=== PATIENT | female | born 1940 | race Caucasian/White ===

== ENCOUNTER 2021-08-09 09:05 | Emergency (ER) | payer MEDICARE, SELFPAY ==
[2021-08-09] VITALS (10 sets, daily range): BP systolic 134–150; BP diastolic 54–66; PULSE 65–89; RESP 16–18; TEMP 36.4; O2SAT 95–99
--- NOTE | ~2021-08-09 | XR_ITS ---
EXAMINATION: XR chest 2V DATE: 08/09/2021 09:56 INDICATION: Cough TECHNIQUE: Frontal and lateral views of the chest are obtained COMPARISON: 06/04/2015 FINDINGS: The lungs are free of acute opacities. There is no pleural effusion or pneumothorax. The ca rdiomediastinal silhouette is normal. There is mild thoracic spondylosis. IMPRESSION: 1. No acute cardiopulmonary abnormality. Reviewed, dictated and finalized at location B.
--- NOTE | 2021-08-09 09:30 | PC.NURSE ---
EDP at bedside to assess pt.
--- NOTE | 2021-08-09 09:40 | ED.URI ---
HPI - URI/Sore Throat General Chief Complaint: Upper Respiratory Infection Stated Complaint: URI Time Seen by Provider: 08/09/21 09:11 Source: patient Mode of arrival: ambulatory Limitations: no limitations History of Present Illness HPI Narrative: 81 y/o female presents to the ER this morning for complaints of sinus congestion and drainage for the past 8 days. She feels a lot of pressure through her forehead. She has had a cough for the past 3 days. She spiked a fever at home this morning of 104. It came down after she took some tylenol. She denies feeling short of breath and does not have any congestion feeling in her chest. She is also reporting UTI symptoms. She has dysuria and urinary frequency for the past 5 days. She has some left flank pain. This is chronic but says it is a little worse right now and she some discomfort in the bladder area. No other abdominal pain. No n/v/d. She has a history of UTIs and says that she gets them very easily. Related Data Allergies Allergy/AdvReac Type Severity Reaction Status Date / Time Penicillins Allergy Unknown THROAT Verified 08/09/21 10:46 AHMET Review of Systems Constitutional: Constitutional: Denies chills, Denies fatigue and Reports fever(s) Eyes: Eyes: Denies change in vision ENT: Reports as per HPI, Denies dizziness, Reports nasal congestion and Denies sore throat Cardiovascular: Cardiovascular: Denies chest pain Respiratory: Respiratory: Denies chest congestion, Reports cough, Denies dyspnea and Denies wheezing Gastrointestinal: Gastrointestinal: Denies abdominal pain, Denies constipation, Denies diarrhea, Denies nausea and Denies vomiting Genitourinary: Genitourinary: Denies hematuria, Reports nocturia, Reports dysuria and Reports flank pain Musculoskeletal: Musculoskeletal: Denies myalgias Neurologic: Reports as per HPI, Denies dizziness, Reports headache(s) and Denies weakness Psychiatric: Psychiatric: Denies anxiety and Denies depression Endocrine: Endocrine: Denies fatigue Hematologic/Lymphatic: Hematologic/Lymphatic: Denies easy bleeding and Denies easy bruising Exam Const: General: healthy appearing, no acute distress and alert Orientation/consciousness: patient oriented x3 HENMT: Ears: TM's normal bilaterally (left TM obstructed by wax) General nose exam: Nasal discharge present clear Face and sinus: sinus tenderness Mouth: Yes Normal oral and palatal mucosa present Throat: posterior oropharynx normal Eyes: Conjunctivae: conjunctivae normal Neck: Neck: normal visual inspection Chest: Chest palpation & inspection: normal inspection of the chest Resp: Effort & Inspection: normal respiratory effort Auscultation: clear to auscultation bilaterally Cardio: Rate: regular rate Rhythm: regular rhythm GI: GI Palp: Yes Soft to palpation, No Tenderness to palpation present (GI) and No Guarding due to palpation present (GI) Auscultation: normal bowel sounds : General: Yes CVA tenderness on the left (mild) Skin: General skin exam: normal color Rashes: no rashes Neuro: General: patient oriented x3, moves all extremities, no focal motor deficits and CN's II-XI intact bilaterally Speech: normal speech Extrem: General: normal to inspection and no edema Psych: Mental Status: mental status grossly normal Affect: normal affect Attitude: cooperative Course Vital Signs Vital signs: Vital Signs Temperature 36.4 C 08/09/21 09:10 Pulse Rate 89 08/09/21 09:10 Respiratory Rate 16 08/09/21 09:10 Blood Pressure 150/65 H 08/09/21 09:10 Pulse Oximetry 98 08/09/21 09:10 Temperature 36.4 C 08/09/21 09:10 Pulse Rate 89 08/09/21 09:10 Respiratory Rate 16 08/09/21 09:10 Blood Pressure 134/58 L 08/09/21 11:01 Pulse Oximetry 97 08/09/21 11:01 MDM - URI/Sore Throat Differential Diagnosis Differential diagnosis: Likely upper respiratory infection, sinusitis and other (UTI, pyelonephritis, pneumonia ) Medical Records Atte
[2021-08-09 10:13] LABS: Basophils Percent Auto 0.7 % (0.2-1.2); Eosinophils Absolute Auto 0.1 K/mm3 (0-0.3); Eosinophils Percent Auto 1.1 % (0-4.4); Hematocrit 36.2 % (37.0-47.0); Hemoglobin 11.9 g/dL (12.0-15.0); Immature Granulocyte Absolute 0.02 K/mm3 (0.00-0.031); Immature Granulocyte Percent A 0.4 % (0-0.5); Lymphocytes Percent Auto 22.2 % (18.3-44.2); Mean Corpuscular HGB Conc 32.9 g/dl (32-36); Mean Corpuscular Hemoglobin 29.2 pg (26-34); Mean Corpuscular Volume 88.9 fl (80-100); Mean Platelet Volume 8.6 fl (7.4-10.4); Monocytes Absolute Auto 0.6 K/mm3 (0.1-0.6); Monocytes Percent Auto 11.7 % (2.6-8.5); Neutrophils Absolute Auto 3.5 K/mm3 (1.3-6.7); Neutrophils Percent Auto 63.9 % (45.5-73.1); Platelet Count Result 216 k/mm3 (150-375); Red Blood Count 4.07 M/mm3 (4.2-5.4); Red Cell Distribution Width 13.8 % (11.5-14.5); White Blood Count 5.4 K/mm3 (4.5-10.0)
[2021-08-09 10:22] LABS: Alanine Aminotransferase 14 U/L (4-35); Albumin Level 4.1 g/dL (3.5-5.1); Alkaline Phosphatase 74 U/L (38-126); Anion Gap 4 mmol/L (8-16); Aspartate Amino Transferase 27 U/L (14-36); Bilirubin,Total 0.3 mg/dL (0.2-1.3); Blood Urea Nitrogen 11 mg/dL (7-17); Calcium 8.4 mg/dL (8.4-10.2); Carbon Dioxide 27 mmol/L (22-30); Chloride 103 mmol/L (98-107); Estimated CRCL calculation 32 ml/min; Estimated Glomerular Filt Rate 60; Glucose 140 mg/dL (65-110); Potassium 3.8 mmol/L (3.4-5.0); Sodium 134 mmol/L (137-145)
[2021-08-09] MEDS: ACETAMINOPHEN 325 MG TABLET 650 MG PO (10:26)
[2021-08-09 10:49] LABS: Influenza A QL RT-PCR Negative (Negative); Influenza B QL RT-PCR Negative (Negative); SARS-CoV-2 RNA PCR Negative
--- NOTE | 2021-08-09 11:08 | PC.NURSE ---
Patient ambulated to for urine sample. Steady gait.
[2021-08-09 11:29] LABS: Add Urine Microscopic? YES; Appearance Urine Cloudy (Clear); Bacteria Urine Trace /hpf; Bilirubin Urine Negative (Negative); Blood Urine 2+ (Negative); Color Urine Yellow (Yellow); Glucose Urine UA Negative (Negative); Ketones Urine Negative (Negative); Leukocyte Esterase Ur 3+ LEU/UL (Negative); Mucus Urine Rare /lpf; Nitrate Urine Positive (Negative); Protein Urine Negative (Negative); RBC Urine 0-2 /hpf (0-2); Specific Grav Ur 1.005 (1.001-1.035); Squamous Epithelial Cell Urine Rare /hpf (Few); Urobilinogen Urine Negative mg/dL (<2.0); WBC Urine >75 /hpf
== END 2021-08-09 12:06 | disposition home or self-care (01) ==
PROVIDERS: Emergency Provider Nurse Practitioner Family; PCP Family Medicine
DX: J06.9 Acute upper respiratory infection, unspecified (principal); N39.0 Urinary tract infection, site not specified; Z20.822 Contact with and (suspected) exposure to COVID-19
CPT/HCPCS: 36415; 71046; 80053; 81001; 85025; 87077; 87086; 87186; 87502; 99283; A9270; C9803; U0003; U0005

== ENCOUNTER 2022-02-02 12:53 | Emergency (ER) | payer MEDICARE, SELFPAY ==
[2022-02-02 13:07] VITALS: BP 155/65; PULSE 84; RESP 16; TEMP 36.8; O2SAT 100
--- NOTE | 2022-02-02 13:14 | ED.FEMALEGU ---
HPI - Female Genitourinary General Chief complaint: Urogenital-Female Stated complaint: flank pain , blood in urine Time Seen by Provider: 02/02/22 12:59 History of Present Illness HPI Narrative: 82-year-old female presents to the emergency room today for complaints of dysuria, hematuria and bilateral flank pain. She has had symptoms of a urinary tract infection for about a week. She has been trying to increase her water intake but says it is still not going away. She has pain and pressure in the bladder area. She reports burning with urination. She noticed some blood in her urine this morning. She denies having any fever or chills. No nausea, vomiting or diarrhea. She has a history of urinary tract infections but denies having a recent infection. Related Data Home Medications Medication Instructions Recorded Confirmed levothyroxine 100 mcg tablet mcg 02/02/22 02/02/22 Allergies Allergy/AdvReac Type Severity Reaction Status Date / Time Penicillins Allergy Unknown THROAT Verified 02/02/22 12:59 SWELLS codeine Allergy Swelling Verified 02/02/22 13:06 of Lip/Tongue/Throat Review of Systems Review of Systems: CONSTITUTIONAL: Denies fever, chills, or sweats. EYES: Denies visual changes, redness, or discharge. ENT: Denies rhinorrhea, congestion, sore throat, or otalgia. CARDIOVASCULAR: Denies chest pain, palpitations, or edema. RESPIRATORY: Denies cough or dyspnea. GASTROINTESTINAL: Denies abdominal pain, nausea, vomiting, or diarrhea. GENITOURINARY: as per HPI. SKIN: Denies rash or itching. MUSCULOSKELETAL: Denies back pain, joint pain, or myalgia. NEUROLOGIC: Denies headache, numbness, dizziness, or weakness. PSYCHIATRIC: Denies anxiety or depression. Exam Narrative: GENERAL: Well-appearing, well-nourished, and in no acute distress. HEAD: Normocephalic, atraumatic. EYES: PERRLA and EOMI. NECK: Supple. No adenopathy or masses. No carotid bruits or JVD CHEST: Clear to auscultation. No respiratory distress. No wheezes rales or rhonchi HEART: Regular rate and rhythm. No murmur heard. Normal peripheral pulses. ABDOMEN: Soft, suprapubic tenderness, bilater CVAT, nondistended, normal active bowel sounds. EXTREMITIES: Normal range of motion. No edema. SKIN: Warm, dry, no rash. NEURO: No focal deficits. Alert and oriented x3. PSYCH: Normal mood and affect. Course Vital Signs Vital signs: Vital Signs Temperature 36.8 C 02/02/22 13:07 Pulse Rate 84 02/02/22 13:07 Respiratory Rate 16 02/02/22 13:07 Blood Pressure 155/65 H 02/02/22 13:07 Pulse Oximetry 100 02/02/22 13:07 Temperature 36.8 C 02/02/22 13:07 Pulse Rate 84 02/02/22 13:07 Respiratory Rate 16 02/02/22 13:07 Blood Pressure 155/65 H 02/02/22 13:07 Pulse Oximetry 100 02/02/22 13:07 MDM - Female Genitourinary Differential Diagnosis Differential diagnosis: Likely urinary tract infection Lab Data Attestation: I reviewed the patient's lab results. Result diagrams: 02/02/22 13:51 02/02/22 13:51 Labs: Lab Results 02/02/22 02/02/22 02/02/22 Range/Units 13:51 13:51 13:51 WBC 8.6 (4.5-10.0) K/mm3 RBC 4.11 L (4.2-5.4) M/mm3 Hgb 11.4 L (12.0-15.0) g/dL Hct 33.8 L (37.0-47.0) % MCV 82.2 (80-100) fl MCH 27.7 (26-34) pg MCHC 33.7 (32-36) g/dl RDW 13.6 (11.5-14.5) % Plt Count 284 (150-375) k/mm3 MPV 8.3 (7.4-10.4) fl Immature Gran % (Auto) 0.7 H (0-0.5) % Neut % (Auto) 72.9 (45.5-73.1) % Lymph % (Auto) 18.1 L (18.3-44.2) % [place] % (Auto) 7.8 (2.6-8.5) % Eos % (Auto) 0.0 (0-4.4) % Baso % (Auto) 0.5 (0.2-1.2) % Lymph # (Auto) 1.55 (0.9-3.2) K/mm3 [place] # (Auto) 0.7 H (0.1-0.6) K/mm3 Eos # (Auto) 0.0 (0-0.3) K/mm3 Baso # (Auto) 0.0 (0.0-0.1) K/mm3 Abs Immat Gran (auto) 0.06 H (0.00-0.031) K/mm3 Absolute Neuts (auto) 6.3 (1.3-6.7) K/mm3 Absolute Nucleated RBC 0.0 (
[2022-02-02 13:59] LABS: Basophils Percent Auto 0.5 % (0.2-1.2); Hematocrit 33.8 % (37.0-47.0); Hemoglobin 11.4 g/dL (12.0-15.0); Immature Granulocyte Absolute 0.06 K/mm3 (0.00-0.031); Immature Granulocyte Percent A 0.7 % (0-0.5); Lymphocytes Absolute Auto 1.55 K/mm3 (0.9-3.2); Lymphocytes Percent Auto 18.1 % (18.3-44.2); Mean Corpuscular HGB Conc 33.7 g/dl (32-36); Mean Corpuscular Hemoglobin 27.7 pg (26-34); Mean Corpuscular Volume 82.2 fl (80-100); Mean Platelet Volume 8.3 fl (7.4-10.4); Monocytes Absolute Auto 0.7 K/mm3 (0.1-0.6); Monocytes Percent Auto 7.8 % (2.6-8.5); Neutrophils Absolute Auto 6.3 K/mm3 (1.3-6.7); Neutrophils Percent Auto 72.9 % (45.5-73.1); Platelet Count Result 284 k/mm3 (150-375); Red Blood Count 4.11 M/mm3 (4.2-5.4); Red Cell Distribution Width 13.6 % (11.5-14.5); White Blood Count 8.6 K/mm3 (4.5-10.0)
[2022-02-02 14:01] LABS: Bilirubin Urine Negative (Negative); Blood Urine 2+ (Negative); Glucose Urine UA Negative (Negative); Ketones Urine Negative (Negative); Leukocyte Esterase Ur 3+ LEU/UL (Negative); Nitrate Urine Positive (Negative); Protein Urine Trace mg/dL (Negative); Specific Grav Ur <= 1.005 (1.001-1.035); Urobilinogen Urine 0.2 mg/dL (<2.0)
[2022-02-02 14:03] LABS: Add Urine Microscopic? YES; Appearance Urine Cloudy (Clear); Color Urine Light Yellow (Yellow)
[2022-02-02 14:09] LABS: Alanine Aminotransferase 12 U/L (6-35); Albumin Level 4.2 g/dL (3.5-5.1); Alkaline Phosphatase 88 U/L (38-126); Anion Gap 12 mmol/L (8-16); Aspartate Amino Transferase 20 U/L (14-36); Bilirubin,Total 0.4 mg/dL (0.2-1.3); Blood Urea Nitrogen 9 mg/dL (7-17); Calcium 8.5 mg/dL (8.4-10.2); Carbon Dioxide 23 mmol/L (22-30); Chloride 100 mmol/L (98-107); Estimated Glomerular Filt Rate 60; Glucose 111 mg/dL (65-110); Potassium 3.8 mmol/L (3.4-5.0); Sodium 135 mmol/L (137-145)
[2022-02-02 14:17] LABS: Amorphous Sediment Urine Few; Bacteria Urine Trace /hpf; Mucus Urine Rare /lpf; Squamous Epithelial Cell Urine Rare /hpf (Few); WBC Clumps Urine Present /HPF; WBC Urine >75 /hpf
[2022-02-02 15:00] VITALS: BP 130/86; PULSE 86; RESP 16; O2SAT 98
== END 2022-02-02 15:01 | disposition home or self-care (01) ==
PROVIDERS: Emergency Medicine; Emergency Provider Nurse Practitioner Family; PCP Internal Medicine Infectious Disease
DX: N30.01 Acute cystitis with hematuria (principal)
CPT/HCPCS: 36415; 80053; 81001; 85025; 87086; 87088; 99283

== ENCOUNTER 2022-05-10 07:50 | Emergency (ER) | payer MEDICARE, SELFPAY ==
--- NOTE | ~2022-05-10 | XR_ITS ---
Left Knee Technique: AP, lateral, and oblique views were obtained. Clinical History: Pain Findings: No fracture or dislocation is seen. Osseous alignment is anatomic. Joint spaces are preserv ed without degenerative or erosive change. Soft tissues are unremarkable. No joint effusion is seen. Impression: Unremarkable left knee radiographs. Reviewed, dictated and finalized at [facility]. BASE REPORT WRITER Impression: Unremarkable left knee radiographs.
--- NOTE | ~2022-05-10 | US_ITS ---
US venous doppler [facility] DATE: 05/10/2022 09:26 INDICATION: Left calf pain since mid March TECHNIQUE: Real-time and color flow imaging and Doppler analysis of the veins of the left lower extre mity COMPARISON: None FINDINGS: The left greater saphenous vein is patent. There is spontaneous and phasic flow and normal augmentation and color flow signal and normal compression of the deep veins of the left lower extremi ty. IMPRESSION: No evidence of deep venous thrombosis of the left lower extremity Reviewed, dictated and finalized at [facility]. Reviewed, dictated and finalized at location B. E DEPARTMENT MANAGER
[2022-05-10 07:57] VITALS: BP 160/64; PULSE 85; RESP 16; TEMP 36.4; O2SAT 100
--- NOTE | 2022-05-10 10:43 | ED.EXTPRO ---
HPI - Extremity Problem General Chief complaint: Extremity Problem,Nontraumatic Stated complaint: LLE redness/pain Time Seen by Provider: 05/10/22 08:46 History of Present Illness HPI Narrative: Pt presents with pain in back of her left knee since March off and on. Pt feels like it is worse and had some redness in her leg yesterday. Pt is worried about a blood clot. Pt denies CP or SOB. Pt is not on blood thinners. Pt is active and has not had recent surgery or been on a long trip. Related Data Home Medications Medication Instructions Recorded Confirmed levothyroxine 100 mcg tablet mcg 02/02/22 02/02/22 Allergies Allergy/AdvReac Type Severity Reaction Status Date / Time Penicillins Allergy Unknown THROAT Verified 05/10/22 08:10 SWELLS codeine Allergy Swelling Verified 05/10/22 08:10 of Lip/Tongue/Throat Review of Systems Review of Systems: All systems reviewed & are unremarkable except as noted in HPI and below Exam Const: General: healthy appearing Nutritional Appearance: well nourished Orientation/consciousness: patient oriented x3 Limitations: no limitations HENMT: Head: normal to inspection Chest: Chest palpation & inspection: normal inspection of the chest Resp: Effort & Inspection: normal respiratory effort Auscultation: clear to auscultation bilaterally Cardio: Rate: regular rate Rhythm: regular rhythm Skin: General skin exam: normal color Rashes: no rashes Neuro: General: patient oriented x3, moves all extremities, no meningeal signs and no focal motor deficits Speech: normal speech Extrem: General: normal to inspection and no clubbing, cyanosis or edema Other: slight tenderness to upper posterior calf no visible swelling Psych: Mental Status: mental status grossly normal Affect: normal affect Attitude: cooperative Course Course Emergency Course: venous doppler and x ray unremarkable likely muscle strain Vital Signs Vital signs: Vital Signs Temperature 97.6 F 05/10/22 07:57 Pulse Rate 85 05/10/22 07:57 Respiratory Rate 16 05/10/22 07:57 Blood Pressure 160/64 H 05/10/22 07:57 Pulse Oximetry 100 05/10/22 07:57 Oxygen Delivery Room Air 05/10/22 07:57 Temperature 97.6 F 05/10/22 07:57 Pulse Rate 66 05/10/22 11:00 Respiratory Rate 16 05/10/22 11:00 Blood Pressure 162/63 H 05/10/22 11:00 Pulse Oximetry 99 05/10/22 11:00 Oxygen Delivery Room Air 05/10/22 07:57 Discharge Plan Discharge Clinical Impression: Left leg pain Patient Disposition: Home, Self-Care Condition: Stable Instructions: Antibiotic Form, Muscle Strain (DC) Prescriptions: No Action levothyroxine 100 mcg tablet ciprofloxacin HCl [Cipro] 500 mg tablet 500 mg PO Q12H 7 Days Qty: 14 0RF phenazopyridine [Pyridium] 100 mg tablet 100 mg PO TID PRN (Reason: pain) Qty: 6 0RF Follow-up/Referrals: Senthil,Alessia Morgan [Primary Care Provider] -
[2022-05-10 11:00] VITALS: BP 162/63; PULSE 66; RESP 16; O2SAT 99
== END 2022-05-10 11:00 | disposition home or self-care (01) ==
PROVIDERS: Emergency Provider Emergency Medicine; PCP Internal Medicine Infectious Disease
DX: M79.662 Pain in left lower leg (principal)
CPT/HCPCS: 73562; 93971; 99284

== ENCOUNTER 2023-04-09 08:11 | Outpatient (CLI) | payer MEDICARE, SELFPAY ==
--- NOTE | ~2023-04-09 | NM_ITS ---
EXAMINATION: JIM alexis renal scan DATE: 04/09/2023 09:59 INDICATION: Bilateral hydronephrosis. TECHNIQUE: 8.1 mCi Tc-99m MAG3 was administered IV. 40 mg furosemide was administered IV immediately afterward. The patient was scanned in the supine position. A posterior abdominal radionuclide angiog briseyda was obtained. A subsequent time course of static images of the kidneys, ureters, and bladder was obtained. COMPARISON: None FINDINGS: The posterior abdominal radionuclide angiogram and sequential static images show normal siz e, position, and morphology of the kidneys. Peak renal parenchymal uptake was 4 min in right kidney a nd 3 min in left kidney (normal peak 3-5 minutes). The relative early renal uptake was 58% on the ri ght and 42% on the left (<40% is abnormal). No abnormalities of the ureters or bladder are seen. T1/2 for clearance of activity from the right kidney and proximal collecting system was 17 minutes. T1/2 for clearance of activity from the left kidney and proximal collecting system was 18 minutes. IMPRESSION: 1. Symmetric kidney function. 2. Delayed contrast clearance from the kidneys suggesting partial obstruction that is likely clinica lly significant. Note that false positives may occur if kidney function is decreased. Reviewed, dictated and finalized at location E. AL SORTING OFFICER IMPRESSION: 1. Symmetric kidney function. 2. Delayed contrast clearance from the kidneys suggesting partial obstruction that is likely clinically significant. Note that false positives may occur if k idney function is decreased.
== END 2023-04-09 08:12 | disposition home or self-care (01) ==
PROVIDERS: PCP Internal Medicine Infectious Disease; Visit Provider Nurse Practitioner Family
DX: N13.30 Unspecified hydronephrosis (principal)
CPT/HCPCS: 78708; A9562; J1940

== ENCOUNTER 2023-08-20 19:10 | Inpatient (IN) | payer MEDICARE, SELFPAY ==
[2023-08-20] VITALS (10 sets, daily range): BP systolic 108–151; BP diastolic 40–90; PULSE 60–125; RESP 16–27; TEMP 36.4–39.4; O2SAT 93–100
--- NOTE | ~2023-08-20 | CT_ITS ---
EXAMINATION: CT abdomen pelvis w con DATE: 08/20/2023 20:50 INDICATION: c/f pyelo versus infected stone TECHNIQUE: Computed tomography (CT) of the abdomen and pelvis was performed with 100 mL Omnipaque-350 intravenous contrast. Automated exposure control and iterative reconstruction technique were employe d. The dose-length product was 193.45 mGy-cm. COMPARISON: None. FINDINGS: Lower thorax: Mild dependent scar/atelectasis. Liver: Simple right lobe cyst. Biliary/Gallbladder: Gallbladder is normal. No bile duct dilation. Pancreas: No mass or duct dilation. Spleen: Normal. Adrenals:No mass. Kidneys: Mild patchy left upper pole enhancement. No suspicious mass. Mild bilateral hydronephrosis w ith moderate urothelial enhancement. Bilateral renal scarring. GI tract: Moderate distal esophageal and gastric wall edema. No small or large bowel dilation. Append ix not confidently visualized. Mesentery/Peritoneum: No ascites, mass, or free air. Retroperitoneum: No mass. Atherosclerotic abdominal aortic and/or arterial calcifications. Pelvis: Moderate bladder wall inflammatory change. Absent uterus. Small bilateral ovaries. Soft Tissues: Soft tissues and body wall unremarkable. Bones: No acute osseous finding. IMPRESSION: Moderate esophagitis/gastritis. Cystitis with bilateral ascending infection and possible left upper pole pyelonephritis. Reviewed, dictated and finalized at location K. IMPRESSION: Moderate esophagitis/gastritis. Cystitis with bilateral ascending infection and possible left upper pole pyelon ephritis.
[2023-08-20 19:34] LABS: Basophils Percent Auto 0.5 % (0.2-1.2); Hematocrit 35.3 % (37.0-47.0); Hemoglobin 11.8 g/dL (12.0-15.0); Immature Granulocyte Absolute 0.02 K/mm3 (0.00-0.031); Immature Granulocyte Percent A 0.3 % (0-0.5); Lymphocytes Percent Auto 17.1 % (18.3-44.2); Mean Corpuscular HGB Conc 33.4 g/dl (32-36); Mean Corpuscular Hemoglobin 27.6 pg (26-34); Mean Corpuscular Volume 82.7 fl (80-100); Monocytes Absolute Auto 0.2 K/mm3 (0.1-0.6); Monocytes Percent Auto 3.3 % (2.6-8.5); Neutrophils Absolute Auto 5.1 K/mm3 (1.3-6.7); Neutrophils Percent Auto 78.8 % (45.5-73.1); Platelet Count Result 242 k/mm3 (150-375); Red Blood Count 4.27 M/mm3 (4.2-5.4); Red Cell Distribution Width 13.6 % (11.5-14.5); White Blood Count 6.4 K/mm3 (4.5-10.0)
[2023-08-20 19:44] LABS: Lactic Acid Reflex 1.8 mmol/L (0.7-2.0)
[2023-08-20 19:45] LABS: Alanine Aminotransferase 12 U/L (6-35); Alkaline Phosphatase 101 U/L (38-126); Anion Gap 11 mmol/L (4-12); Aspartate Amino Transferase 21 U/L (14-36); Bilirubin,Total 1.1 mg/dL (0.2-1.3); Blood Urea Nitrogen 18 mg/dL (7-17); Carbon Dioxide 20 mmol/L (22-30); Chloride 103 mmol/L (98-107); Estimated CRCL calculation 28 ml/min; Estimated Glomerular Filt Rate 53; Glucose 127 mg/dL (65-110); Lipase 71 U/L (23-300); Sodium 134 mmol/L (137-145)
--- NOTE | 2023-08-20 19:56 | ED.FEMALEGU ---
HPI - Female Genitourinary General Chief complaint: Urogenital-Female Stated complaint: bladder infection Time Seen by Provider: 08/20/23 19:43 Source: patient and family () Mode of arrival: ambulatory Limitations: clinical condition History of Present Illness HPI Narrative: Patient reports the emergency department complaint of fevers, chills and nausea. Initial triage note reported complaint of low back pain though patient states it is left flank pain. She states that she started feeling unwell on either or Sunday. On Sunday afternoon she began having extreme chills and felt like she was freezing no matter how many blankets are applied. Her notes that over the last several days she has been shaking with chills. She went to an urgent care today at approximately 12 noon and was diagnosed with a urinary tract infection based on a urinalysis. She was prescribed ciprofloxacin and phenazopyridine. She was advised to take her 1st dose ciprofloxacin at 1:00 p.m. and the 2nd dose 5:00 p.m. so that she had 2 doses today. She did this but continued to feel unwell. She denies any cough. She has had 3 episodes of emesis while in the emergency department. 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 Related Data Home Medications Medication Instructions Recorded Confirmed levothyroxine 100 mcg tablet 100 mcg PO AC 02/02/22 08/21/23 Allergies Allergy/AdvReac Type Severity Reaction Status Date / Time Penicillins Allergy Unknown THROAT Verified 08/20/23 19:11 SWELLS codeine Allergy Swelling Verified 08/20/23 19:11 of Lip/Tongue/Throat PMFSH Past Medical History Medical History (Updated 08/21/23 @ 11:17 by Cathie La MD) History of cancer Gynecologic (details unknown) at age 31, underwent radiation Social History Social History (Updated 08/21/23 @ 11:11 by Cathie La MD) Smoking status: Never smoker Second hand tobacco smoke exposure: No Alcohol intake: never Substance use: never Do You Feel Safe in your Home?: Yes Lack of Transportation: No Lack of Food: Never True Current Housing: I Have Housing Concerned About Future Housing: No Difficulty Paying Gas/Electric Bills: No Difficulty Paying for Meds: No Currently Unemployed: No Education: High School Diploma/GED Difficulty w/ Childcare or Family Care: No Living arrangements: with family Additional living arrangements comments: Gender identity (if verbalized by the patient): Female Spiritual care concerns: No Exam Narrative: GENERAL: Well-appearing, well-nourished, and in no acute distress. HEAD: Normocephalic, atraumatic. EYES: Non injected, non icteric ENT: Nares clear, no rhinorrhea or epistaxis. NECK: Supple. CHEST: Speaking full sentences. No respiratory distress. HEART: Tachycardic rate and rhythm. . ABDOMEN: Soft, nondistended. Nontender to palpation Back/: Bilateral CVA tenderness the right greater than left EXTREMITIES: Normal range of motion. No edema. SKIN: Warm, dry, no rash. NEURO: No focal deficits. Alert and oriented x3. PSYCH: Normal mood and affect. Course Vital Signs Vital signs: Vital Signs Temperature 102.3 F H 08/20/23 19:13 Pulse Rate 125 H 08/20/23 19:13 Respiratory Rate 18 08/20/23 19:13 Blood Pressure 151/90 H 08/20/23 19:13 Pulse Oximetry 95 08/20/23 19:13 Oxygen Delivery Room Air 08/20/23 19:13 Temperature 97.0 F L 08/21/23 05:55 Pulse Rate 60 08/21/23 05:55 Respiratory Rate 18 08/21/23 05:55 Blood Pressure 132/43 L 08/21/23 05:55 Pulse Oximetry 94 08/21/23 08:21 Oxygen Delivery Room Air 08/21/23 08:21 MDM - Female Genitourinary MDM Narrative Medical decision making narrative: Patient reports the emergency department complaint of fevers, chills and
[2023-08-20] MEDS: SODIUM CHLORIDE 0.9% IV 1,000 ML 999 ML IV CONT (20:04)
[2023-08-20] MEDS: ACETAMINOPHEN 500 MG TABLET 1000 MG PO (20:04)
[2023-08-20 20:08] LABS: Add Urine Microscopic? YES; Appearance Urine Turbid (Clear); Bacteria Urine None Seen /hpf; Bilirubin Urine 1+ (Negative); Blood Urine 2+ (Negative); Color Urine Dark Yellow (Yellow); Glucose Urine UA Negative (Negative); Ketones Urine Negative (Negative); Leukocyte Esterase Ur 3+ LEU/UL (Negative); Need Manual Microscopic Reviewed; Nitrate Urine Positive (Negative); Non Pathogenic Casts 0-2; Protein Urine 1+ mg/dL (Negative); Specific Grav Ur 1.009 (1.001-1.035); Squamous Epithelial Cell Urine None Seen /hpf (Few); WBC Urine >100 /hpf (0-3)
[2023-08-20 20:39] LABS: Influenza A QL RT-PCR Negative (Negative); Influenza B QL RT-PCR Negative (Negative); SARS-CoV-2 RNA PCR Negative (Negative)
--- NOTE | 2023-08-20 20:39 | PC.NURSE ---
Pt to CT at this time.
[2023-08-20] MEDS: SULFAMETHOXAZOLE/TRIMETHOPRIM 800/160 MG DS TABLET 1 TAB PO (21:37)
[2023-08-20] MEDS: ONDANSETRON INJ 4 MG/2 ML VIAL IV PUSH (21:37)
--- NOTE | 2023-08-20 23:52 | ADMGEN ---
This patient, Kellie Rodriguez, was admitted to [facility] Room 330-01. Patient/family oriented to hospital policies and general routines including ID bracelet, bed and alarms, visiting hours, pain management, procedures, bathroom and other care routines, personal items, smoking policy, room service/diet, and visiting hours. Information on how to activate the Rapid Response Team has been discussed. Patient/Family are encouraged to report perceived risks to care and to ask questions if they do not understand what they are told or what they should do.
[2023-08-21] MEDS: LACTATED RINGERS 1,000 ML 100 ML IV CONT (00:15)
[2023-08-21] MEDS: MEROPENEM 1 GM/NS 100 ML 1 GM/100 ML BAG IVPB ×3 (00:15→23:00)
[2023-08-21 04:57] VITALS: BP 129/50; PULSE 63
[2023-08-21 04:58] VITALS: BP 121/53; PULSE 66
[2023-08-21 05:55] VITALS: BP 132/43; PULSE 60; RESP 18; TEMP 36.1; O2SAT 100
--- NOTE | 2023-08-21 08:17 | PM.IMHP ---
H&P: HPI History of Present Illness Date/Time: 08/21/23 08:17 Chief Complaint: Fever chills low back pain Narrative: 83 years old lady with history of hypothyroidism, present ED with a chief complaint of fever, chills low back pain. Patient started have low back pain, dysuria, urinary urgency frequency about 4 days ago, patient also has intermittent chills in past few days. Patient denies a cough. But has been having nausea vomiting since Sunday. Patient went to urgent care, patient found have urinary infection the patient prescribed Cipro and patient was sent home. Upon arriving home, patient was feeling unwell, therefore patient came to ED for evaluation treatment. Upon arrival to ED, patient had a fever 102.3, tachycardia 125, tachypnea, blood pressure stable, pulse ox 95 room air,, white blood cell 6400, with the new true left shift and anemia hemoglobin 11.8, metabolic acidosis bicarbonate 20, UA showed cloudy urine, pyuria, microscopic hematuria, positive nitrate, CT abdomen pelvis suggest moderate esophagitis gastritis, cystitis and left pyelonephritis PMFSH Past Medical History Medical History (Updated 08/21/23 @ 11:17 by Cathie La MD) History of cancer Gynecologic (details unknown) at age 31, underwent radiation Social History Social History (Updated 08/21/23 @ 11:11 by Cathie La MD) Smoking status: Never smoker Second hand tobacco smoke exposure: No Alcohol intake: never Substance use: never Do You Feel Safe in your Home?: Yes Lack of Transportation: No Lack of Food: Never True Current Housing: I Have Housing Concerned About Future Housing: No Difficulty Paying Gas/Electric Bills: No Difficulty Paying for Meds: No Currently Unemployed: No Education: High School Diploma/GED Difficulty w/ Childcare or Family Care: No Living arrangements: with family Additional living arrangements comments: Gender identity (if verbalized by the patient): Female Spiritual care concerns: No Meds Home Medications and Allergies Home Medications Medication Instructions Recorded Confirmed Type levothyroxine 100 mcg tablet 100 mcg PO AC 02/02/22 08/21/23 History Allergies Allergy/AdvReac Type Severity Reaction Status Date / Time Penicillins Allergy Unknown THROAT Verified 08/20/23 19:11 SWELLS codeine Allergy Swelling Verified 08/20/23 19:11 of Lip/Tongue/Throat Vital Signs Vital Signs - 24 hr 08/20/23 19:13 08/20/23 19:57 08/20/23 20:34 Temperature 102.3 F H 103 F H 99.5 F Pulse Rate 125 H Respiratory Rate 18 Blood Pressure 151/90 H Pulse Oximetry 95 Oxygen Delivery Room Air 08/20/23 21:38 08/20/23 20:16 08/20/23 21:31 Temperature Pulse Rate 82 90 85 Respiratory Rate 18 16 27 H Blood Pressure 123/70 138/61 123/70 Pulse Oximetry 95 93 94 Oxygen Delivery 08/20/23 22:16 08/20/23 22:46 08/20/23 23:16 Temperature Pulse Rate 75 71 73 Respiratory Rate 16 17 16 Blood Pressure 108/66 115/65 109/50 L Pulse Oximetry 94 95 96 Oxygen Delivery 08/20/23 19:22 08/20/23 19:22 08/21/23 04:57 Temperature 97.5 F L Pulse Rate 69 60 63 Respiratory Rate 16 Blood Pressure 119/40 L 133/43 L 129/50 L Pulse Oximetry 100 Oxygen Delivery 08/21/23 04:58 08/21/23 05:55 Temperature 97.0 F L Pulse Rate 66 60 Respiratory Rate 18 Blood Pressure 121/53 L 132/43 L Pulse Oximetry 100 Oxygen Delivery Exam Narrative: GENERAL: Pleasant, in no acute distress. Well-nourished. - EYES: EOMI. Anicteric. - HENT: Moist mucous membranes. - LUNGS: Clear to auscultation bilaterally, no wheezing, rhonchi, or rales. Tachypnea - CARDIOVASCULAR: Regular rate and rhythm. No murmur. No JVD. Tachycardia - ABDOMEN: Soft, left CVA tender and non-distended. No palpable masses. - EXTREMITIES: No edema. Peripheral pulses 2+. Non-tender. - NEUROLOGIC: No focal neurological deficits. CN II-XII grossly int
[2023-08-21 08:21] VITALS: O2SAT 94
[2023-08-21] MEDS: SODIUM CHLORIDE 0.9% IV 1,000 ML 100 ML IV CONT ×2 (09:52→20:32)
[2023-08-21] MEDS: LEVOTHYROXINE SODIUM 100 MCG TABLET PO (09:53)
[2023-08-21] MEDS: ENOXAPARIN 40 MG/0.4 ML SYRINGE SUB-Q (09:53)
[2023-08-21 14:00] VITALS: BP 132/58; PULSE 58; RESP 16; TEMP 36.6; O2SAT 98
[2023-08-21] MEDS: ACETAMINOPHEN 325 MG TABLET 650 MG PO (17:00)
[2023-08-21 20:00] VITALS: BP 122/42; PULSE 70; RESP 18; TEMP 36.7; O2SAT 95
[2023-08-22] MEDS: LEVOTHYROXINE SODIUM 100 MCG TABLET PO (05:30)
[2023-08-22 06:00] VITALS: BP 131/48; PULSE 65; RESP 14; TEMP 36.9; O2SAT 96
--- NOTE | 2023-08-22 08:17 | PM.IMPN ---
Progress Note: A&P Assessment and Plan (1) Normocytic anemia: Code(s): D64.9 - Anemia, unspecified Status: Acute (2) Severe sepsis: Code(s): A41.9 - Sepsis, unspecified organism; R65.20 - Severe sepsis without septic shock Status: Acute (3) Urinary tract infection: Code(s): N39.0 - Urinary tract infection, site not specified Status: Acute (4) Pyelonephritis of left kidney: Code(s): N12 - Tubulo-interstitial nephritis, not specified as acute or chronic Status: Acute (5) Acquired hypothyroidism: Code(s): E03.9 - Hypothyroidism, unspecified Status: Acute (6) Pyelonephritis: Code(s): N12 - Tubulo-interstitial nephritis, not specified as acute or chronic Status: Acute Plan Severe sepsis, UTI, pyelonephritis Presented ED with a chief complaint of sinus for urinary infection Patient has a fever 102, tachycardia tachypnea, neutrophil left shift, upon arrival, blood pressure was low UA shows pyuria, microscopic hematuria CT abdomen suggests cystitis, left pyelonephritis Received fluid resuscitation, blood pressure became stable Continue normal saline IV Continue meropenem 1 g q.12 hour Follow-up blood culture urine culture: penidng on 08/21, continue antibiotics today Hypothyroidism Continue Synthroid at home dose, 100 mcg daily p.o. Follow-up TSH DVT prophylaxis Lovenox 40 mg subQ Patient may stay more than 2 midnights in the hospital Subjective Date/time seen: 08/22/23 08:17 Interval history: I saw exam patient today, patient feels better today, phlegm pain has resolved. Patient denies chest pain, abdomen pain, nausea vomiting diarrhea. Afeb, bp stable o/n Exam Narrative: GENERAL: Pleasant, in no acute distress. Well-nourished. - EYES: EOMI. Anicteric. - HENT: Moist mucous membranes. - LUNGS: Clear to auscultation bilaterally, no wheezing, rhonchi, or rales. - CARDIOVASCULAR: Regular rate and rhythm. No murmur. No JVD. - ABDOMEN: Soft, non-tender and non-distended. No palpable masses. - EXTREMITIES: No edema. Peripheral pulses 2+. Non-tender. - NEUROLOGIC: No focal neurological deficits. CN II-XII grossly intact. - PSYCHIATRIC: Awake, Alert and oriented x 3. Appropriate mood and affect. - SKIN: No rashes or lesions. Warm. - LYMPH: No cervical lymphadenopathy. Objective Data Vital Signs Vital Signs: Vital Signs - 24 hr 08/21/23 08:21 08/21/23 14:00 08/21/23 20:00 Temperature 97.9 F 98.1 F Pulse Rate 58 L 70 Respiratory Rate 16 18 Blood Pressure 132/58 L 122/42 L Pulse Oximetry 94 98 95 Oxygen Delivery Room Air 08/22/23 06:00 Temperature 98.4 F Pulse Rate 65 Respiratory Rate 14 Blood Pressure 131/48 L Pulse Oximetry 96 Oxygen Delivery Intake/Output Intake/Output: Intake & Output 08/19/23 08/20/23 08/21/23 08/22/23 23:59 23:59 23:59 23:59 Intake Total 1000 2560 500 Balance 1000 2560 500 Meds/Results Medications: Active Medications Generic Name Dose Route Start Last Admin Trade Name Freq PRN Reason Stop Dose Admin Acetaminophen 650 mg 08/20/23 22:20 08/21/23 17:00 Acetaminophen 325 Mg Tablet PO 650 mg Q4H PRN Administration Mild Pain (1-3) or Fever Enoxaparin Sodium 40 mg 08/21/23 09:00 08/21/23 09:53 Enoxaparin 40 Mg/0.4 Ml Syringe SUB-Q 40 mg DAILY WALLY Administration Meropenem 1 gm in 100 mls @ 200 mls/hr 08/20/23 23:00 08/21/23 23:00 IVPB 200 mls/hr Q12H WALLY Administration Sodium Chloride 1,000 mls @ 100 mls/hr 08/21/23 08:30 08/21/23 20:32 Normal Saline Iv IV CONT 100 mls/hr .Q10H WALLY Administration Levothyroxine Sodium 100 mcg 08/21/23 06:30 08/22/23 05:30 Levothyroxine Sodium 100 Mcg Tablet PO 100 mcg DAILY@0630 WALLY Administration Ondansetron HCl 4 mg 08/20/23 22:20 Ondansetron Inj 4 Mg/2 Ml Vial IV PUSH Q4H PRN Nausea Radiology Results: ITS Impressions Abdomen/Pelvis CT 08/20/23 20:58
[2023-08-22] MEDS: ENOXAPARIN 40 MG/0.4 ML SYRINGE SUB-Q (08:41)
[2023-08-22 09:31] LABS: Hemoglobin 10.7 g/dL (12.0-15.0); Mean Corpuscular HGB Conc 32.4 g/dl (32-36); Mean Corpuscular Hemoglobin 27.6 pg (26-34); Mean Corpuscular Volume 85.1 fl (80-100); Mean Platelet Volume 9.3 fl (7.4-10.4); Platelet Count Result 240 k/mm3 (150-375); Red Blood Count 3.88 M/mm3 (4.2-5.4); Red Cell Distribution Width 13.6 % (11.5-14.5); White Blood Count 5.6 K/mm3 (4.5-10.0)
[2023-08-22 09:38] LABS: Anion Gap 4 mmol/L (4-12); Blood Urea Nitrogen 10 mg/dL (7-17); Calcium 8.6 mg/dL (8.4-10.2); Carbon Dioxide 26 mmol/L (22-30); Chloride 107 mmol/L (98-107); Estimated CRCL calculation 34 ml/min; Estimated Glomerular Filt Rate > 60; Glucose 103 mg/dL (65-110); Potassium 4.2 mmol/L (3.4-5.0); Sodium 137 mmol/L (137-145)
[2023-08-22 10:11] LABS: Procalcitonin 4.4 ng/mL
[2023-08-22 10:23] LABS: Thyroid Stimulating Hormone Reflex 0.551 uIU/mL (0.465-4.68)
[2023-08-22] MEDS: ACETAMINOPHEN 325 MG TABLET 650 MG PO (12:51)
[2023-08-22] MEDS: cefTRIAXone 2 GM/NS 100 ML 2 GM/100 ML BAG IVPB (12:52)
[2023-08-22 14:00] VITALS: BP 141/49; PULSE 70; RESP 18; TEMP 36.9; O2SAT 97
[2023-08-22 20:00] VITALS: PULSE 70; RESP 18; O2SAT 97
[2023-08-22 22:00] VITALS: BP 143/49; PULSE 63; RESP 14; TEMP 37.1; O2SAT 98
[2023-08-23] MEDS: ACETAMINOPHEN 325 MG TABLET 650 MG PO (00:27)
[2023-08-23 06:00] VITALS: BP 140/53; PULSE 67; RESP 14; TEMP 36.9; O2SAT 96
[2023-08-23] MEDS: LEVOTHYROXINE SODIUM 100 MCG TABLET PO (06:29)
[2023-08-23 08:00] VITALS: BP 148/53; PULSE 66; RESP 18; TEMP 36.4; O2SAT 97
[2023-08-23] MEDS: cefTRIAXone 2 GM/NS 100 ML 2 GM/100 ML BAG IVPB (08:03)
[2023-08-23] MEDS: ENOXAPARIN 40 MG/0.4 ML SYRINGE SUB-Q (08:04)
--- NOTE | 2023-08-23 08:36 | PM.IMPN ---
Progress Note: A&P Assessment and Plan (1) Normocytic anemia: Code(s): D64.9 - Anemia, unspecified Status: Acute (2) Severe sepsis: Code(s): A41.9 - Sepsis, unspecified organism; R65.20 - Severe sepsis without septic shock Status: Acute (3) Urinary tract infection: Code(s): N39.0 - Urinary tract infection, site not specified Status: Acute (4) Pyelonephritis of left kidney: Code(s): N12 - Tubulo-interstitial nephritis, not specified as acute or chronic Status: Acute (5) Acquired hypothyroidism: Code(s): E03.9 - Hypothyroidism, unspecified Status: Acute (6) Pyelonephritis: Code(s): N12 - Tubulo-interstitial nephritis, not specified as acute or chronic Status: Acute Plan Severe sepsis, UTI, pyelonephritis Presented ED with a chief complaint of sinus for urinary infection Patient has a fever 102, tachycardia tachypnea, neutrophil left shift, upon arrival, blood pressure was low UA shows pyuria, microscopic hematuria CT abdomen suggests cystitis, left pyelonephritis Received fluid resuscitation, blood pressure became stable Continue normal saline IV Continue meropenem 1 g q.12 hour Follow-up blood culture urine culture: penidng on 08/21, continue antibiotics today 08/22 afeb over 48 hours, wbc wnl, blood culture does not grow bacteria, change to levaquin 500mg daily po at discharge pt needs to see PCP in one week for follow up Hypothyroidism Continue Synthroid at home dose, 100 mcg daily p.o. Follow-up TSH 0.551 DVT prophylaxis Lovenox 40 mg subQ Patient may stay more than 2 midnights in the hospital Subjective Date/time seen: 08/23/23 08:36 Interval history: Patient has no new issue even overnight. denies chest pain, abdomen pain, nausea vomiting diarrhea. Afeb, bp stable o/n Exam Narrative: GENERAL: Pleasant, in no acute distress. Well-nourished. - EYES: EOMI. Anicteric. - HENT: Moist mucous membranes. - LUNGS: Clear to auscultation bilaterally, no wheezing, rhonchi, or rales. - CARDIOVASCULAR: Regular rate and rhythm. No murmur. No JVD. - ABDOMEN: Soft, non-tender and non-distended. No palpable masses. - EXTREMITIES: No edema. Peripheral pulses 2+. Non-tender. - NEUROLOGIC: No focal neurological deficits. CN II-XII grossly intact. - PSYCHIATRIC: Awake, Alert and oriented x 3. Appropriate mood and affect. - SKIN: No rashes or lesions. Warm. - LYMPH: No cervical lymphadenopathy. Objective Data Vital Signs Vital Signs: Vital Signs - 24 hr 08/22/23 14:00 08/22/23 20:00 08/22/23 22:00 Temperature 98.4 F 98.7 F Pulse Rate 70 70 63 Respiratory Rate 18 18 14 Blood Pressure 141/49 H 143/49 H Pulse Oximetry 97 97 98 Oxygen Delivery Room Air 08/23/23 06:00 Temperature 98.4 F Pulse Rate 67 Respiratory Rate 14 Blood Pressure 140/53 L Pulse Oximetry 96 Oxygen Delivery Intake/Output Intake/Output: Intake & Output 08/20/23 08/21/23 08/22/23 08/23/23 23:59 23:59 23:59 23:59 Intake Total 1000 2560 1820 Balance 1000 2560 1820 Meds/Results Medications: Active Medications Generic Name Dose Route Start Last Admin Trade Name Freq PRN Reason Stop Dose Admin Acetaminophen 650 mg 08/20/23 22:20 08/23/23 00:27 Acetaminophen 325 Mg Tablet PO 650 mg Q4H PRN Administration Mild Pain (1-3) or Fever Enoxaparin Sodium 40 mg 08/21/23 09:00 08/23/23 08:04 Enoxaparin 40 Mg/0.4 Ml Syringe SUB-Q 40 mg DAILY WALLY Administration Ceftriaxone Sodium 2 gm in 100 mls @ 200 mls/hr 08/22/23 12:00 08/23/23 08:03 Rocephin 2 Gm/Ns 100 Ml IVPB 200 mls/hr DAILY WALLY Administration Levothyroxine Sodium 100 mcg 08/21/23 06:30 08/23/23 06:29 Levothyroxine Sodium 100 Mcg Tablet PO 100 mcg DAILY@0630 WALLY Administration Ondansetron HCl 4 mg 08/20/23 22:20 Ondansetron Inj 4 Mg/2 Ml Vial IV PUSH Q4H PRN Nausea Radiology Results: ITS Impressions Abdomen/Pelv
--- NOTE | 2023-08-23 08:39 | PM.DS ---
DS: Admitting Diagnosis Discharge Date 08/22 Admitting Diagnosis (1) Normocytic anemia: ?Code(s): D64.9 - Anemia, unspecified ?Status:?Acute (2) Severe sepsis: ?Code(s): A41.9 - Sepsis, unspecified organism; R65.20 - Severe sepsis without septic shock ?Status:?Acute (3) Urinary tract infection: ?Code(s): N39.0 - Urinary tract infection, site not specified ?Status:?Acute (4) Pyelonephritis of left kidney: ?Code(s): N12 - Tubulo-interstitial nephritis, not specified as acute or chronic ?Status:?Acute (5) Acquired hypothyroidism: ?Code(s): E03.9 - Hypothyroidism, unspecified ?Status:?Acute (6) Pyelonephritis: ?Code(s): N12 - Tubulo-interstitial nephritis, not specified as acute or chronic ?Status:?Acute DS: Discharge Diagnosis Discharge Diagnosis (1) Normocytic anemia: Code(s): D64.9 - Anemia, unspecified Status: Acute (2) Severe sepsis: Code(s): A41.9 - Sepsis, unspecified organism; R65.20 - Severe sepsis without septic shock Status: Acute (3) Urinary tract infection: Code(s): N39.0 - Urinary tract infection, site not specified Status: Acute (4) Pyelonephritis of left kidney: Code(s): N12 - Tubulo-interstitial nephritis, not specified as acute or chronic Status: Acute (5) Acquired hypothyroidism: Code(s): E03.9 - Hypothyroidism, unspecified Status: Acute (6) Pyelonephritis: Code(s): N12 - Tubulo-interstitial nephritis, not specified as acute or chronic Status: Acute DS: Summary Hospital Course Hospital Course: 83 years old lady with history of hypothyroidism, present ED with a chief complaint of fever, chills low back pain.? Patient started have low back pain, dysuria, urinary urgency frequency about 4 days ago, patient also has intermittent chills in past few days.? Patient denies a cough.? But has been having nausea vomiting since Sunday.? Patient went to urgent care, patient found have urinary infection the patient prescribed Cipro and patient was sent home.? Upon arriving home, patient was feeling unwell, therefore patient came to ED for evaluation treatment.? Upon arrival to ED, patient had a fever 102.3, tachycardia 125, tachypnea, blood pressure stable, pulse ox 95 room air,, white blood cell 6400, with the new true left shift and anemia hemoglobin 11.8, metabolic acidosis bicarbonate 20, UA showed cloudy urine, pyuria, microscopic hematuria, positive nitrate, CT abdomen pelvis suggest moderate esophagitis gastritis, cystitis and left pyelonephritis The following med issues have been addressed during hospitalization Severe sepsis, UTI, pyelonephritis Presented ED with a chief complaint of sinus for urinary infection Patient has a fever 102, tachycardia tachypnea, neutrophil left shift, upon arrival, blood pressure was low UA shows pyuria, microscopic hematuria CT abdomen suggests cystitis, left pyelonephritis Received fluid resuscitation, blood pressure became stable Continue normal saline IV Continue meropenem 1 g q.12 hour Follow-up blood culture urine culture: penidng on 08/21, continue antibiotics today 08/22 afeb over 48 hours, wbc wnl, blood culture does not grow bacteria, change to levaquin 500mg daily po at discharge pt needs to see PCP in one week for follow up Hypothyroidism Continue Synthroid at home dose, 100 mcg daily p.o. Follow-up TSH 0.551 DVT prophylaxis Lovenox 40 mg subQ Patient may stay more than 2 midnights in the hospital Time Spent with Patient Time attestation: Total time spent providing and/or coordinating discharge services: Exam Narrative: GENERAL: Pleasant, in no acute distress. Well-nourished. - EYES: EOMI. Anicteric. - HENT: Moist mucous membranes. - LUNGS: Clear to auscultation bilaterally, no wheezing, rhonchi, or rales. - CARDIOVASCULAR: Regular rate and rhythm. No murmur. No JVD. - ABDOMEN: Soft, non-tender and non-distended
== END 2023-08-23 10:10 | disposition home or self-care (01) | DRG 872 ==
LOC: ANHED 21:43 → ANH3MEDSUR 23:05
PROVIDERS: Physician Assistant; Admitting Provider Internal Medicine; Emergency Provider Student in an Organized Health Care Education/Training Program; PCP Internal Medicine Infectious Disease; Visit Provider Hospitalist
DX: A41.9 Sepsis, unspecified organism (principal); N10 Acute pyelonephritis; R65.20 Severe sepsis without septic shock; N30.91 Cystitis, unspecified with hematuria; E03.9 Hypothyroidism, unspecified; D64.9 Anemia, unspecified
CPT/HCPCS: 36415; 74177; 80048; 80053; 81001; 83605; 83690; 84145; 84443; 85025; 85027; 87040; 87086; 87636; 96361; 96365; 96372; 96375; 99285; A9270; G0378; J0696; J1650; J2185; J2405; J7030; J7120; Q9967

== ENCOUNTER 2024-03-11 07:37 | Emergency (ER) | payer MEDICARE, SELFPAY ==
[2024-03-11 07:41] VITALS: BP 191/67; PULSE 79; RESP 18; TEMP 37.4; O2SAT 99
--- NOTE | 2024-03-11 07:43 | ED.FEMALEGU ---
HPI - Female Genitourinary General Chief complaint: Urogenital-Female Stated complaint: flank pain Time Seen by Provider: 03/11/24 07:38 History of Present Illness HPI Narrative: Patient presenting with left-sided flank pain, dysuria, and suprapubic discomfort, this feels exactly like her prior UTIs, symptoms ongoing for last 8 days. No history of kidney stones. No fevers or chills, nausea or vomiting. Related Data Home Medications Medication Instructions Recorded Confirmed levothyroxine 100 mcg tablet 100 mcg PO AC 02/02/22 08/21/23 Allergies Allergy/AdvReac Type Severity Reaction Status Date / Time Penicillins Allergy Unknown THROAT Verified 03/11/24 07:59 SWELLS codeine Allergy Swelling Verified 03/11/24 07:59 of Lip/Tongue/Throat Review of Systems Review of Systems: All systems reviewed & are unremarkable except as noted in HPI and below PMFSH Past Medical History Medical History (Updated 03/11/24 @ 08:46 by Claudette Arrington MD) History of cancer Gynecologic (details unknown) at age 31, underwent radiation Social History Social History (Updated 08/21/23 @ 11:11 by Cathie La MD) Smoking status: Never smoker Second hand tobacco smoke exposure: No Alcohol intake: never Substance use: never Do You Feel Safe in your Home?: Yes Lack of Transportation: No Lack of Food: Never True Current Housing: I Have Housing Concerned About Future Housing: No Difficulty Paying Gas/Electric Bills: No Difficulty Paying for Meds: No Currently Unemployed: No Education: High School Diploma/GED Difficulty w/ Childcare or Family Care: No Living arrangements: with family Additional living arrangements comments: Gender identity (if verbalized by the patient): Female Spiritual care concerns: No Exam Narrative: EXAMINATION OF ORGAN SYSTEMS/BODY AREAS: Constitutional: Vital signs per nursing GENERAL:[No acute distress, non-toxic appearing.] HEAD: Normal with no signs of head trauma. EYES: EOMI, conjunctiva normal ENT: Hearing grossly intact LUNGS: Nonlabored breathing. HEART: [Regular rate and rhythm] ABD: [Soft], very minimal discomfort left CVA, suprapubic EXT: Normal range of motion SKIN: [No rashes or lesions.] NEURO: [Alert and oriented x 3. No gross focal sensory or strength deficits.] PSYCH: Normal affect Course Vital Signs Vital signs: Vital Signs Temperature 99.3 F 03/11/24 07:41 Pulse Rate 79 03/11/24 07:41 Respiratory Rate 18 03/11/24 07:41 Blood Pressure 191/67 H 03/11/24 07:41 Pulse Oximetry 99 03/11/24 07:41 Temperature 99.3 F 03/11/24 07:41 Pulse Rate 79 03/11/24 07:41 Respiratory Rate 18 03/11/24 07:41 Blood Pressure 191/67 H 03/11/24 07:41 Pulse Oximetry 99 03/11/24 07:41 MDM - Female Genitourinary MDM Narrative Medical decision making narrative: 84 year-old patient presenting with suprapubic pain and urinary symptoms consistent with UTI/pyelonephritis. Urinalysis is obtained and positive for signs of infection. Urine culture sent. She is very well appearing here repeat blood pressure is normal. Labs within acceptable limits including normal WBC. She has never had history of kidney stones in the past, I did review her EMR and prior CT. Patient started on antibiotics after reviewing urine culture for sensitivities, given 1 dose of ceftriaxone here and she has tolerated levofloxacin in the past and send script for this to pharmacy, and strongly advised to return for any increasing or worsening pain, fevers or vomiting. They expressed understanding of instructions and is discharged in stable condition. Lab Data 03/11/24 07:53 03/11/24 07:53 Labs: Lab Results 03/11/24 Range/Units 07:53 WBC 7.7 (4.5-10.0) K/mm3 RBC 4.74 (4.2-5.4) M/mm3 Hgb 12.4 (12.0-15.0) g/dL Hct 39.3 (37.0-47.0) % MCV 82.9 (80-100) fl MCH 26.2 (26-34)
[2024-03-11 08:13] LABS: Basophils Percent Auto 0.5 % (0.2-1.2); Hematocrit 39.3 % (37.0-47.0); Hemoglobin 12.4 g/dL (12.0-15.0); Immature Granulocyte Absolute 0.09 K/mm3 (0.00-0.031); Immature Granulocyte Percent A 1.2 % (0-0.5); Lymphocytes Absolute Auto 1.68 K/mm3 (0.9-3.2); Lymphocytes Percent Auto 21.9 % (18.3-44.2); Mean Corpuscular HGB Conc 31.6 g/dl (32-36); Mean Corpuscular Hemoglobin 26.2 pg (26-34); Mean Corpuscular Volume 82.9 fl (80-100); Mean Platelet Volume 8.5 fl (7.4-10.4); Monocytes Absolute Auto 0.8 K/mm3 (0.1-0.6); Monocytes Percent Auto 9.8 % (2.6-8.5); Neutrophils Absolute Auto 5.1 K/mm3 (1.3-6.7); Neutrophils Percent Auto 66.6 % (45.5-73.1); Platelet Count Result 335 k/mm3 (150-375); Red Blood Count 4.74 M/mm3 (4.2-5.4); Red Cell Distribution Width 14.3 % (11.5-14.5); White Blood Count 7.7 K/mm3 (4.5-10.0)
[2024-03-11 08:14] LABS: Add Urine Microscopic? YES; Appearance Urine Turbid (Clear); Bacteria Urine 4+ /hpf; Bilirubin Urine Negative (Negative); Blood Urine 2+ (Negative); Color Urine Yellow (Yellow); Glucose Urine UA Negative (Negative); Ketones Urine Negative (Negative); Leukocyte Esterase Ur 3+ LEU/UL (Negative); Nitrate Urine Negative (Negative); Non Pathogenic Casts 0-2; Protein Urine 1+ mg/dL (Negative); Specific Grav Ur 1.006 (1.001-1.035); Squamous Epithelial Cell Urine None Seen /hpf (Few); Urobilinogen Urine 0.2 mg/dL (<2.0); WBC Urine >100 /hpf (0-3)
[2024-03-11 08:15] LABS: Alanine Aminotransferase 12 U/L (6-35); Albumin Level 4.4 g/dL (3.5-5.1); Alkaline Phosphatase 110 U/L (38-126); Anion Gap 10 mmol/L (4-12); Aspartate Amino Transferase 20 U/L (14-36); Bilirubin,Total 0.5 mg/dL (0.2-1.3); Blood Urea Nitrogen 11 mg/dL (7-17); Calcium 9.4 mg/dL (8.4-10.2); Carbon Dioxide 26 mmol/L (22-30); Chloride 102 mmol/L (98-107); Estimated CRCL calculation 28 ml/min; Estimated Glomerular Filt Rate 53; Glucose 109 mg/dL (65-110); Potassium 4.5 mmol/L (3.4-5.0); Sodium 138 mmol/L (137-145)
[2024-03-11 08:30] VITALS: BP 145/70; PULSE 73; RESP 18; O2SAT 99
[2024-03-11] MEDS: cefTRIAXone 2 GM/NS 100 ML 2 GM/100 ML BAG IVPB (08:52)
[2024-03-11 09:30] VITALS: BP 142/75; PULSE 65; RESP 18; TEMP 37.1; O2SAT 100
== END 2024-03-11 09:34 | disposition home or self-care (01) ==
PROVIDERS: Emergency Provider Emergency Medicine; PCP Internal Medicine Infectious Disease
DX: N12 Tubulo-interstitial nephritis, not specified as acute or chronic (principal); Z92.3 Personal history of irradiation; Z85.40 Personal history of malignant neoplasm of unspecified female genital organ
CPT/HCPCS: 36415; 80053; 81001; 85025; 87077; 87086; 87186; 96365; 99284; J0696